=== PATIENT | male | born 1965 ===

== ENCOUNTER 2025-06-04 13:57 | Inpatient (IN) | payer MEDICARE ==
[~2025-06-04] VITALS: Ht 175.3 cm; Wt 104.1 kg
[2025-06-04 14:44] VITALS: BP 116/74
[2025-06-04 15:17] VITALS: BP 116/74
--- NOTE | 2025-06-04 16:50 | NUR ---
ADMISSION NOTE 60 YEAR-OLD MALE PRESENTS REASONABLY GROOMED. HE IS INITIALLY ABLE TO MAKE EYE CONTACT, BUT CANOT HOLD THAT EYE CONTACT DURING A COVERSATION. PT'S MOOD WAS GOOD AND HIS AFFECT WAS CONGRUENT. PT DENIES HI, VH, AND TH AT THIS TIME. HE DOES HOWEVER ENDORSE HAVING AH "ALL OF THE TIME". PT STATES THAT WHEN THE VOICES GET REALLY BAD, HE JUST WANTS TO END IT. HE STATED THAT HE HAS HAD FLEETING SI, BUT NEVER PROGRESSED TO THE PLANNING STAGE. PT APPEARS TO BE VERY LATTER DAY AND ON SEVERAL OCCASSIONS HAD TO BE REDIRECTED OUT OF TANGENTIAL CONVERSATIONS DURING THE INTAKE PROCESS. PT STATES HE IS NOT ALLERGIC TO ANYTHING. UNABLE TO COMPLETE MED RECON D/T THE PT UNSURE OF MEDICATIONS. ATTEMPTED TO CALL [facility], BUT THEY WERE CLOSED. WILL REATTEMPT TOMORROW AM. PT STATED THAT HE MOSTLY MEDICATION COMPLIANT, BUT OCCASSIONALLY HIS VOICES MAKE HIM PARANOID AND HE BECOMES NONCOMPLIANT WITH HIS MEDS. PT WAS GIVEN A SNACK AND DRINK. HE WAS ORIENTED TO THE UNIT. PT WILL BE MONITORED Q15 MINUTES FOR SAEFTY AND CARE
[2025-06-04] MEDS ORDERED: LORazepam 2 MG/ML 1ML Injection IM PRN (17:10)
[2025-06-04] MEDS ORDERED: DiphenhydrAMINE HCl 50 MG/ML 1ML Vial IM PRN (17:15)
[2025-06-04] MEDS ORDERED: Ondansetron 4 MG SoluTab MM PRN (17:15)
[2025-06-04] MEDS ORDERED: Polyethylene Glycol 3350 17 gm PO PRN (17:15)
[2025-06-04] MEDS ORDERED: Aluminum Hydroxide 320MG/5ML 473 ML PO PRN (17:20)
[2025-06-04] MEDS ORDERED: FLU VACC TS2025-26(6MOS UP)/PF 45 MCG/0.5 ML SYRINGE IM ONE (17:20)
[2025-06-04] MEDS ORDERED: Haloperidol Lactate Inj. 5 MG/ML Injection IM PRN (17:20)
[2025-06-04 18:04] LABS: BASOPHILS ABSOLUTE AUTO 0.05 K/mm3 (0.00-0.23); BASOPHILS PERCENT AUTO 1 % (0-2); EOSINOPHILS ABSOLUTE AUTO 0.29 K/mm3 (0.00-0.68); EOSINOPHILS PERCENT AUTO 4 % (0-6); Hematocrit 45.5 % (37.0-53.0); Hemoglobin 15.2 g/dL (13.5-17.5); IMMATURE GRAN ABSOLUTE AUTO 0.05 K/mm3 (0.00-0.10); IMMATURE GRAN PERCENT AUTO 1 % (0-1); LYMPHOCYTES ABSOLUTE AUTO 1.32 K/mm3 (0.84-5.20); LYMPHOCYTES PERCENT AUTO 18 % (21-46); MONOCYTES ABSOLUTE AUTO 0.52 K/mm3 (0.16-1.47); MONOCYTES PERCENT AUTO 7 % (4-13); Mean Corpuscular HGB Conc 33.4 g/dL (31.5-36.5); Mean Corpuscular Volume 84 fL (80-100); NEUTROPHILS ABSOLUTE AUTO 5.08 K/mm3 (1.96-9.15); NEUTROPHILS PERCENT AUTO 69 % (41-73); NRBC ABSOLUTE 0.00 K/mm3 (0.00-0.02); NRBC Auto 0.0 /100 WBC (0.0-0.2); Platelet Count 146 K/mm3 (150-400); RDW Coefficient Variation 13.4 % (11.7-14.2); RDW Standard Deviation 41.1 fL (35.1-46.3)
[2025-06-04 19:00] LABS: Anion Gap 9 mmol/L (3-11); Blood Urea Nitrogen 27 mg/dL (8-24); CHOL/HDL RATIO 4.0; CO2, Blood 25 mmol/L (21-32); Calcium, Blood 8.4 mg/dL (8.5-10.1); Chloride, Blood 105 mmol/L (98-108); Cholesterol 128 mg/dL (50-200); Creatinine, Blood 1.09 mg/dL (0.60-1.20); Glucose, Blood 138 mg/dL (70-99); HDL Cholesterol 32 mg/dL (>39); LDL/HDL RATIO 0.7; Low Density Lipoprotein Chol 22 mg/dL (0-110); Potassium, Blood 4.1 mmol/L (3.5-5.5); Sodium, Blood 135 mmol/L (136-145); Triglycerides 371 mg/dL (30-160); Very Low Density Lipoprot Chol 74 mg/dL (6-32)
[2025-06-04 20:07] VITALS: BP 100/79
--- NOTE | 2025-06-05 04:33 | NUR ---
SHIFT SUMMARY: CATRACHO IS A 60 YEAR OLD MALE PATIENT FROM [place] WHO LIKES TO BE CALLED "XAVIER". HE STARTED OUT THE SHIFT IN THE DAYROOM, WATCHING TELEVISION AND INTERACTING PLEASANTLY WITH HIS ROOMMATE. HIS CONVERSATIONS ARE LINEAR FOR ABOUT THREE SENTENCES, AND THEN THEY VEER OFF INTO FLIGHT OF IDEAS THAT APPROACH WORD SALAD, RELIGIOUSLY BASED IN NATURE. HE STATES THAT HE IS "HAPPY TO BE HERE, SO FAR" AND "THE PEOPLE HERE SEEM NICE, BUT YOU HAVE TO LOOK AT EVERY PERSON ONE BY ONE AND DISCERN IF THEY ARE TRULY NICE OR IF THEY HAVE ANOTHER AGENDA." HE STATES THAT HE BELIEVES "PEOPLE ARE SPYING ON ME AND TRYING TO HURT ME". HE WAS REASSURED THAT HE IS SAFE HERE ON THE UNIT. HE STATED, "WE'LL SEE ABOUT THAT". HE DENIED SUICIDAL IDEATIONS, THOUGHTS OF SELF HARMING AND A/V/T HALLUCINATIONS. FOR EXAMPLE, HE WAS IN HIS ROOM SPEAKING TO HIS SISTER, WHO IS APPARENTLY IN THE [facility], AND HE WAS ASKED IF HE THOUGHT SHE COULD HEAR HIM. HE STATED THAT HE DID NOT THINK THAT. HE PARTICIPATED IN SNACK AND WRAP UP GROUP, ALTHOUGH HE DID NOT HAVE A PAPER, BEING A NEW ADMIT. HE WAS COOPERATIVE WITH EVENING MEDICATION ADMINISTRATION, AND WAS GIVEN A TRAZODONE FOR C/O INSOMNIA, WHICH WAS NOT EFFECTIVE. HE WENT TO HIS ROOM WHEN HIS ROOMMATE WENT, AND WENT TO BED, BUT HE WAS TALKING AND GETTING UP AND DOWN. HE CAME OUT OF THE ROOM WELL. HE WAS ASKED IF HE NEEDED MORE HELP SLEEPING, AND HAD A MASS SCORE OF 5. HE WAS GIVEN VISTARIL WITH NO EFFECT FOR ANXIETY, AND CONTINUED TO SING, TALK AND WANDER AROUND THE UNIT. HE APPARENTLY (PER ROOMMATE) TAPPED ON HIS ROOMMATE'S MATTRESS, CAUSING ROOMMATE TO YELL ANGRILY. AT THAT POINT, PATIENT WAS ASKED TO COME AND SIT IN THE SENSORY ROOM WHILE STAFF FIGURED THINGS OUT. HE WAS STILL WIDE AWAKE AND BECOMING LOUD AND DEMANDING, RESTLESS AND DISORGANIZED. WITH A MASS SCORE OF 9, HE WAS GIVEN ZYPREXA. IT HELPED HIM CALM, BUT HE WAS STILL WIDE AWAKE. HE WAS MOVED TO HIS OWN SPACE IN ROOM 605D, WHICH APPEARED TO MAKE HIM HAPPY. HE CAME OUT AGAIN ASKING FOR LOTION FOR HIS FEET, AND WAS GIVEN A HYGIENE BAG. HE PUT LOTION ON HIS FEET, WHILE SINGING LOUDLY, AND THEN CAME OUT AGAIN. HE WAS LED TO HIS ROOM AND ASKED TO STAY IN THERE IF HE COULD POSSIBLY, AND TRY TO SLEEP. HE WAS AGREEABLE, BUT DIDN'T SEEM ABLE TO ACCOMPLISH IT. AT 0440, HE IS STILL POPPING UP IN BED AT EACH CHECK, WAVING TO STAFF AND ANNOUNCING HIS LATEST THOUGHTS AND CONCERNS. CONTINUING TO MONITOR FOR SAFETY WITH Q15 MINUTE CHECKS.
[2025-06-05] MEDS ORDERED: OLAN10 (08:30)
[2025-06-05] MEDS ORDERED: POTA10T PO (08:31)
[2025-06-05] MEDS ORDERED: METF500 PO (08:31)
[2025-06-05] MEDS ORDERED: CLOZAPINE200 M1 PO (08:32)
[2025-06-05] MEDS ORDERED: OLAN10A PO (08:33)
[2025-06-05] MEDS ORDERED: TRAZ100 PO (08:34)
[2025-06-05] MEDS ORDERED: PALI6TA PO (08:34)
[2025-06-05] MEDS ORDERED: ATOR20 PO (08:35)
[2025-06-05] MEDS ORDERED: FURO20 PO (08:36)
[2025-06-05] MEDS ORDERED: DOC250 PO (08:42)
[2025-06-05] MEDS ORDERED: HYDHCL25 PO (08:44)
[2025-06-05] MEDS ORDERED: METO25 PO (08:45)
[2025-06-05] MEDS ORDERED: SENN187 PO (08:46)
[2025-06-05] MEDS ORDERED: MIRALAX17 GM (08:46)
[2025-06-05] MEDS ORDERED: ATROPINE SULFATE2 M1 SL (08:48)
[2025-06-05] MEDS ORDERED: Multivitamins 1 Tab PO SCH (09:00)
[2025-06-05] MEDS ORDERED: Atropine Sulfate 1% Opth Soln 2ML BTL SL PRN (09:10)
[2025-06-05 13:20] VITALS: BP 136/87
[2025-06-05] MEDS ORDERED: MetFORMIN HCl 500 mg PO SCH (16:00)
--- NOTE | 2025-06-05 17:07 | NUR ---
SHIFT SUMMARY PT DENIES SI, HI, AND TACTILE HALLUCINATIONS. ENDORSES AUDITORY HALLUCINATIONS, BUT DENIED HAVING THEM AT START OF SHIFT, STATED IT WAS "JUST CHATTER". PT STATED HE HAD VISUAL HALLUCINATION LAST NIGHT, "I SAW A TV ON THE CEILING". PT SPEECH ALTERNATES BETWEEN TANGENTIAL AND CIRCUMSTANTIAL. PT GIVEN ZYPREXA TODAY D/T ESCALATING AND ENDORSING FEELING ANXIETY. DIFFICULT TO REDIRECT. DR AWARE, NO OTHER ACUTE EVENTS TODAY.
--- NOTE | 2025-06-05 18:45 | NUR ---
UPDATE PT BECAME AGITATED W/ MASS SCORE OF 21 AFTER DINNER. SECURITY CALLED AND IM ATIVAN AND BENEDRYL BROUGHT TO ADMINISTER PT. PT BEGAN TO ESCALATE AND OPTION WAS GIVEN TO PT TO TAKE PO, WHICH PT AGREED TO. PT THEN REFUSED TO TAKE BENEDRYL, BUT TOOK ATIVAN. DR ROBBINS NOTIFIED W/ ORDERS FOR GEODON, WHICH WAS GIVEN TO PT. PT IS NOW QUIETLY TALKING IN [place] W/ SECURITY, BUT ESCALATES WHEN THIS RN OR JEISON RN APPROACHES. DR SALGADO. BEFORE MEDICATION ADMINISTERED, PT WAS SCREAMING/YELLING ABOUT LUTHERAN, BEING "RAPED BEFORE", AND CALLING JEISON A "BITCH". ATTEMPTS AT THERAPEUTIC COMMUNICATION/DEESCALATION WAS UNSUCCESSFUL.
--- NOTE | 2025-06-06 04:28 | NUR ---
SHIFT SUMMARY: PATIENT WAS IN THE DAYROOM AT THE BEGINNING OF THE SHIFT, INTERACTING WITH STAFF AND PEERS SOMEWHAT APPROPRIATELY. HE WAS ASKED IF HE WANTED TO TALK, AND HE DID, SO RN AND PATIENT WENT OUT TO THE [facility], LEAVING THE DOOR TO THE DAYROOM OPEN. PATIENT STATED, "I TALK TO MY SISTER A LOT. SHE'S IN SENIOR LIVING, BUT SHE CAN HEAR ME". HE LIFTED HIS HEAD TOWARD THE MATT AND SPOKE TO AN UNSEEN OTHER FOR A MOMENT. HE WAS RATHER VERBOSE, BUT DID DENY SUICIDAL IDEATION, THOUGHTS OF SELF HARMING AND WHILE HE DENIED A/V/T HALLUCINATIONS, HE PRESENTED HEARING AND MOST LIKELY SEEING UNSEEN OTHER/OTHERS. HE VEERED OFF TOPIC AT TIMES, AND WAS HARD TO REDIRECT. HE BORDERED ON BEING INAPPROPRIATE AND ALSO INSULTING, SO MOTIVATIONAL INTERVIEWING COMMUNICATION USING OPEN ENDED QUESTIONS WAS TRIED TO STEER HIM BACK TO THE TOPIC, WHICH EVENTUALLY DID HAPPEN. HE DENIED ANY ISSUES OR CONCERNS AND PRESENTED ENJOYING HIMSELF. HE PARTICIPATED IN SNACK AND WRAP UP GROUP AT 2030, AND WAS SOMEWHAT COMPLIANT WITH MEDICATION ADMINISTRATION. IT WAS DIFFICULT TO DETERMINE WHETHER HE WAS PLAYING A JOKE OR ACTUALLY HAD CONCERNS THAT HIS PILLS WERE SOMETHING "POISON". HE WAS SHOWN ALL OF HIS MEDICATIONS WHILE STILL IN THE WRAPPER, AND MEDICATION EDUCATION WAS GIVEN ON EACH ONE. HIS ISSUE WAS WITH A MEDICATION THAT HE NEEDED TO TAKE 8 1 MG PILLS TO GET HIS DOSAGE. HE DID FINALLY TAKE THE MEDICATION WHEN A PEER URGED HIM TO DO SO. HE CAME BACK TO THE DAYROOM AND WAS OVERSEEING THE BUILDING OF A PUZZLE UNTIL HE DROOPED OVER AND FELL ASLEEP. HE WAS ESCORTED PEACEFULLY TO HIS ROOM, AND TUCKED INTO HIS BED. HE GOT UP SEVERAL TIMES DURING THE NIGHT. HE HAD AN EPISODE OF INCONTINENCE, SO HIS BEDDING WAS CHANGED AND HE WAS GIVEN NEW SCRUBS. HE WENT INTO HIS BATHROOM AND LOUDLY TALKED AND TAPPED AND CLICKED HIS FINGERS. IT WAS SUGGESTED THAT HE COME DOWN TO THE SENSORY ROOM, BUT HE ONLY LASTED A MINUTE IN THERE. HE DID AGREE TO TAKE A ZYPREXA AT 0338 FOR A MASS SCORE OF 9. HE PACED THE HALLWAYS FOR A TIME AND MADE SOME NOISE BUT NOT ENOUGH TO WARRANT INTERVENTION. AT THIS TIME, HE IS SITTING IN A CHAIR IN THE HALLWAY NEAR THE NURSING STATION TALKING TO A PEER. HE IS WEARING AN UNDERGARMENT INCONTINENCE PROTECTOR (DEPENDS) WILLINGLY, SHOULD HE FALL ASLEEP AND HAVE AN ACCIDENT AGAIN. CONTINUING TO MONITOR CONTINUOUSLY WHILE NEAR THE NURSING STATION FOR SAFETY.
[2025-06-06] MEDS ORDERED: Potassium Chloride 10 Meq Tablet SA PO SCH (09:00)
--- NOTE | 2025-06-06 10:21 | NUR ---
PT RESTING INN BED WITH EYES CLOSED. WAS NOT UP FOR BREAKFAST. THIS RN SPOKE WITH DR. ROBBINS WHO APPROVED HOLDING AM MEDS UNTIL PT IS AWAKE.
[2025-06-06 13:24] VITALS: BP 130/71
--- NOTE | 2025-06-06 17:49 | NUR ---
SHIFT SUMMARY: PT WAS RESTING IN BED THIS AM WITH EYES CLOSED, APPEARED TO BE SLEEPING. HE SLEPT THROUGH BREAKFAST AND AM MEDS WERE HELD WITH OK FROM PROVIDER. PT WAS WOKE UP WITHOUT DIFFICULTY FOR LUNCH. HE WAS CALM AND COOPERATIVE WITH CARE. HE DENIED SI, HI AND AVH. HE WAS COMPLIANT WITH MEDICATIONS AND ACTIVE IN THE MILIEU. HE SPENT TIME IN THE DAY ROOM AND ON THE PATIO. IN THE AFTERNOON PT WAS NOTED TO BE TALKING WHILE OUTSIDE ALONE, MOVING ARMS AROUND ANIMIATEDLY. HE WALKED BACK INTO THE DAY ROOM AND SAT QUIETLY DOING CROSSWORD PUZZLES. HE ATTENDED LUNCH AND DINNER AND WAS CALM THROUGHOUT THE DAY.
[2025-06-06 20:38] VITALS: BP 117/75
--- NOTE | 2025-06-07 04:35 | NUR ---
SHIFT SUMMARY PATIENT IN BED SLEEPING AT BEGINNING OF SHIFT AWAKENS EASILY TO SLIGHT STIMULI. VERBALIZED THAT HE IS "HANGING IN THERE" AND THAT HE IS FEELING "HOPEFUL". DENIES SI,OR HI. DENIES AVH AFTER A LONG PAUSE AND APPEARED TO BE LISTENING. PATIENT UP FOR SNACK AND TAKING HS MEDICATIONS WITH NO DIFFICULTY. RETURNING TO BED AFTER FINISHING EATING. AT 2315 PATIENT UP TO NURSES DESK REQUESTING SOMETHING TO HELP WITH SLEEP TRAZODONE GIVEN. PATIENT APPEARS TO BE SLEEPING WELL T/O NIGHT WITH OCCASIONAL SNORING. CONTINUE TO MONITOR Q15MIN
[2025-06-07 08:06] VITALS: BP 107/72
--- NOTE | 2025-06-07 17:36 | NUR ---
SHIFT SUMMARY: PT HAS BEEN ALERT, ORIENTED AND COOPERATIVE WITH CARE. HE DENIED SI AND HI. REPORTS HAVING HALLUCINTIONS "ALL THE TIME" BUT WOULD NOT ELABORATE FURTHER. HE ATTENDED MEALS AND WAS PRESENT ON THE UNIT. ACTIVE IN THE MILIEU, SPENT TIME IN THE DAY ROOM WATCHING TV. CONVERSIVE WITH PEERS AND STAFF.
[2025-06-07 20:35] VITALS: BP 127/72
--- NOTE | 2025-06-08 04:44 | NUR ---
SHIFT SUMMARY: PATIENT WAS IN AND OUT OF THE DAYROOM AT THE BEGINNING OF THE SHIFT. HE GREETED STAFF COMING IN, BUT HAD SOME INTEREST IN THE FOOTBALL GAME IN THE DAYROOM. HE WAS NOT ABLE TO SIT STILL FOR LONG. RN USED COLLABORATIVE PROBLEM SOLVING TO LET HIM KNOW THAT STAFF WANTS TO HEAR WHAT HE HAS TO SAY, BUT INSULTS WILL NOT BE TOLERATED. HE RESPONDED THAT HE UNDERSTOOD. HE WAS ABLE TO BE PLEASANT AND COOPERATIVE WITH CARES. HE HAD A HARD TIME FOCUSING ON ANY ONE THING WHILE AWAKE THIS SHIFT. HE WAS ABLE TO ANSWER FABRICATION AND LAYOUT CRAFTSMAN QUESTIONS IN A LOGICAL AND LINEAR MANNER. HE DENIED SUICIDAL IDEATION, THOUGHTS OF SELF HARMING AND A/V/T HALLUCINATIONS. HE WAS NOT NOTED TO BE RESPONDING TO UNSEEN/UNHEARD OTHERS THIS SHIFT. HE PARTICIPATED IN SNACK AND WRAP UP GROUP, AND WAS COMPLIANT WITH EVENING MEDICATIONS. HE WAS ABLE TO SEE THE MEDICATIONS BEING OPENED, AND WAS GIVEN MEDICATION EDUCATION, TO WHICH HE VERBALIZED UNDERSTANDING. HE REQUESTED AND RECEIVED TRAZODONE, WHICH WAS EFFECTIVE FOR INSOMNIA. HE WENT TO BED AFTER SNACK, AND WAS NOTED TO BE RESTING QUIETLY WITH EYES CLOSED AND RESPIRATIONS CONFIRMED FOR THE REMAINDER OF THE SHIFT. HE DID TALK IN HIS SLEEP AT LEAST X1. CONTINUING TO MONITOR FOR SAFETY WITH Q15 MINUTE CHECKS.
[2025-06-08 06:56] LABS: CLOZAPINE, S/P, QUANT 105 ng/mL; CLOZAPINE-N-OXIDE, S/P, QUANT <100 ng/mL; NORCLOZAPINE, S/P, QUANT <100 ng/mL; TOTAL CLOZAPINE AND METAB 105 ng/mL (<=1500)
[2025-06-08 07:35] LABS: BASOPHILS ABSOLUTE AUTO 0.07 K/mm3 (0.00-0.23); BASOPHILS PERCENT AUTO 1 % (0-2); EOSINOPHILS ABSOLUTE AUTO 0.20 K/mm3 (0.00-0.68); EOSINOPHILS PERCENT AUTO 3 % (0-6); Hematocrit 46.4 % (37.0-53.0); Hemoglobin 15.3 g/dL (13.5-17.5); IMMATURE GRAN ABSOLUTE AUTO 0.09 K/mm3 (0.00-0.10); IMMATURE GRAN PERCENT AUTO 1 % (0-1); LYMPHOCYTES ABSOLUTE AUTO 1.37 K/mm3 (0.84-5.20); LYMPHOCYTES PERCENT AUTO 22 % (21-46); MONOCYTES ABSOLUTE AUTO 0.58 K/mm3 (0.16-1.47); MONOCYTES PERCENT AUTO 9 % (4-13); Mean Corpuscular HGB Conc 33.0 g/dL (31.5-36.5); Mean Corpuscular Volume 83 fL (80-100); NEUTROPHILS ABSOLUTE AUTO 3.93 K/mm3 (1.96-9.15); NEUTROPHILS PERCENT AUTO 63 % (41-73); NRBC ABSOLUTE 0.00 K/mm3 (0.00-0.02); NRBC Auto 0.0 /100 WBC (0.0-0.2); Platelet Count 135 K/mm3 (150-400); RDW Coefficient Variation 13.4 % (11.7-14.2); RDW Standard Deviation 40.8 fL (35.1-46.3)
[2025-06-08 08:14] VITALS: BP 116/75
--- NOTE | 2025-06-08 10:14 | NUR ---
SHIFT ASSESSMENT: PT IS ALERT, ORIENTED AND COOPERATIVE WITH CARE. HE DENIES SI AND HI. WHEN ASKED ABOUT AVH, STATES " IT'S WEIRD TO EXPLIAN, IT'S LIKE SHANNON FLORES AND THE HOL[employer] SPIRIT". PT DOES NOT APPEAR TO BE RESPONDING TO INTERNAL STIMULI AT THIS TIME. HE DENIES ANXIETY. HIS AFFECT IS CONTSTRICTED, HAS APPROPRIATE EYE CONTACT AND IS ABLE TO VERBALIZE NEEDS APPOPRIATELY. HE WAS UP FOR BREAKFAST, SHOWERED WITH SOME ENCOURAGEMENT FROM STAFF AND SPENT TIME RESTING ON HIS BED. HE HAS BEEN COMPLIANT WITH MEDICATIONS AND STATED THAT HE SLEPT GOOD LAST NIGHT.
--- NOTE | 2025-06-08 17:20 | NUR ---
SHIFT SUMMARY: PT REMAINED ALERT, ORIENTED AND COOPERATIVE THROUGHOUT THE SHIFT. NO PRN MEDICATIONS REQUIRED. HE ATTENDED MEALS AND SHOWERED THIS AM. HE WAS ACTIVE IN THE UNIT MILIEU, SPENT TIME IN THE DAY ROOM WATCHING TV AND TALKING WITH PEERS AND STAFF.
[2025-06-08 20:41] VITALS: BP 128/77
--- NOTE | 2025-06-09 04:54 | NUR ---
SHIFT SUMMARY: PATIENT WAS IN THE MILIEU, WANDERING AROUND AND TALKING TO STAFF AND PEERS. HE PRESENTED JOVIAL AND FRIENDLY. HE WAS IN AND OUT OF THE DAY ROOM, WATCHING TELEVISION AT TIMES. HE WAS ABLE TO ANSWER RN QUESTIONS IN A LOGICAL AND LINEAR MANNER, NOT VEERING OFF INTO TANGENTIAL PHRASES. HE DENIED SUICIDAL IDEATION, THOUGHTS OF SELF HARMING AND A/V/T HALLUCINATIONS. HE WAS NOT OBSERVED RESPONDING TO UNSEEN/UNHEARD OTHERS THIS SHIFT, UNLIKE PRIOR SHIFTS. HE PARTICIPATED IN SNACK AND WRAP UP GROUP, ALTHOUGH HE DID NOT WRITE ON HIS WRAP UP PAPER. HE WAS COMPLIANT WITH MEDICATION ADMINISTRATION, AND RECEIVED MEDICATION EDUCATION, TO WHICH HE WAS ABLE TO VERBALIZE UNDERSTANDING. HE REQUESTED AND WAS GIVEN A TRAZODONE FOR INSOMNIA, WHICH WAS EFFECTIVE. HE WENT TO BED BEFORE 2200, AND WAS NOTED TO BE RESTING QUIETLY WITH EYES CLOSED AND RESPIRATIONS CONFIRMED FOR THE REMAINDER OF THE SHIFT. CONTINUING TO MONITOR FOR SAFETY WITH Q15 MINUTE CHECKS.
[2025-06-09 07:49] LABS: Hematocrit 44.7 % (37.0-53.0); Hemoglobin 15.0 g/dL (13.5-17.5); Mean Corpuscular HGB Conc 33.6 g/dL (31.5-36.5); Mean Corpuscular Volume 83 fL (80-100); NRBC ABSOLUTE 0.00 K/mm3 (0.00-0.02); NRBC Auto 0.0 /100 WBC (0.0-0.2); RDW Coefficient Variation 13.5 % (11.7-14.2); RDW Standard Deviation 40.6 fL (35.1-46.3)
[2025-06-09 07:50] LABS: Platelet Count 133 K/mm3 (150-400)
[2025-06-09 07:51] LABS: BASOPHILS ABSOLUTE AUTO 0.05 K/mm3 (0.00-0.23); BASOPHILS PERCENT AUTO 1 % (0-2); EOSINOPHILS ABSOLUTE AUTO 0.24 K/mm3 (0.00-0.68); EOSINOPHILS PERCENT AUTO 4 % (0-6); IMMATURE GRAN ABSOLUTE AUTO 0.09 K/mm3 (0.00-0.10); IMMATURE GRAN PERCENT AUTO 1 % (0-1); LYMPHOCYTES ABSOLUTE AUTO 1.38 K/mm3 (0.84-5.20); LYMPHOCYTES PERCENT AUTO 20 % (21-46); MONOCYTES ABSOLUTE AUTO 0.63 K/mm3 (0.16-1.47); MONOCYTES PERCENT AUTO 9 % (4-13); NEUTROPHILS ABSOLUTE AUTO 4.37 K/mm3 (1.96-9.15); NEUTROPHILS PERCENT AUTO 65 % (41-73)
[2025-06-09 08:46] VITALS: BP 114/84
[2025-06-09 08:47] LABS: BAND PERCENT MAN 1 % (0-8); BASOPHILS ABSOLUTE MAN 0.06 K/mm3 (0.00-0.23); BASOPHILS PERCENT MAN 1 % (0-2); EOSINOPHILS ABSOLUTE MAN 0.20 K/mm3 (0.00-0.68); EOSINOPHILS PERCENT MAN 3 % (0-6); LYMPHOCYTES ABSOLUTE MAN 1.24 K/mm3 (0.84-5.20); LYMPHOCYTES PERCENT MAN 18 % (21-46); METAMYELOCYTE ABSOLUTE MAN 0.06 K/mm3 (0.00-0.00); METAMYELOCYTE PERCENT MAN 1 % (0-0); MONOCYTES ABSOLUTE MAN 0.55 K/mm3 (0.16-1.47); MONOCYTES PERCENT MAN 8 % (4-13); NEUTROPHILS ABSOLUTE MAN 4.75 K/mm3 (1.96-9.15); SEG NEUTROPHILS PERCENT MAN 68 % (41-73)
--- NOTE | 2025-06-09 18:15 | NUR ---
SHIFT SUMMARY PT A/O X3; COOPERATIVE WITH CARE. HE DENIES SI, HI, AVTH. HIS AFFECT IS CONGRUENT TO STATED MOOD AND HE ATTENDED GROUPS/MEALS. PT STATES THAT HE IS READY TO DISCHARGE AND WILL POTENTIALL DISCHARGE ON MONDAY. PT MONITORED Q15 PER UNIT PROTOCOL FOR SAFETY AND WELLNESS.
[2025-06-09 20:15] VITALS: BP 117/75
--- NOTE | 2025-06-10 04:14 | NUR ---
SHIFT SUMMARY 60 YEAR OLD MALE PRESENTED WELL GROOMED. PT WAS ABLE TO MAKE AND KEEP EYE CONTACT DURING CONVERSATIONS. HE SPOKE IN A CLEAR VOICE AND AN APPROPRIATE VOLUME. PT DENIED SI & HI. HE DID ENDORCE AH, BUT SAID THEY WERE BETTER THAN WHEN HE ADMITTED.PT INTERACTED WELL WITH STAFF AND PEERS. PT WATCHED TV AND AND ATTENDED SNACK TIME. HE WAS CALM AND COOPERATIVE WITH CARE AND COMPLIANT WITH THE EVENING MEDICATION PASS. PT DID NOT REQUEST ANY PRN MEDICATIONS. PT HAS SLEPT MOST OF THE NIGHT.
[2025-06-10 09:18] VITALS: BP 115/74
--- NOTE | 2025-06-10 13:23 | NUR ---
IMPORTANT DISCHARGE INFORMATION PATIENT TO BE DISCHARGED 06/11/25 AT 10AM. RIDE LINE COMING TO PICK PATIENT UP. THEIR NUMBER IS [phone] PLEASE HAVE PATIENT READY [facility] IS EXPECTING THE PATIENT BEFORE NOON. HIS ASSISTANT FINANCIAL ACCOUNTANT CLAUDIA BALDERRAMA WILL MEET HIM AT [facility], HIS NUMBER IS [phone]. ALL PARTIES VERBALIZE AN UNDERSTANDING. FOLLOW UP WITH PCP DR. CARR 06/11/25 AT 2PM. HE WILL BE FOLLOWED BY [facility] AND THE [facility] TEAM. HE WILL GET HIS NEW APARTMENT ALSO ON MONDAY WITH ASSISTANCE OF [facility]. PHARMACY: [facility] FAX NUMBER [phone]
--- NOTE | 2025-06-10 17:06 | NUR ---
SHIFT SUMMARY PT A/O X4; PLEASANT AND COOPERATIVE WITH CARE. HE DENIES SI AND HI. HE REPORTS THAT HE HAS CONSTANT AUDIO AND VISUAL HALLUCINATIONS. HE SAYS THAT THEY "COSME" HIM AND THAT "IT'S HARD TO DESCRIBE" BUT THEY AREN'T BOTHERSOME. HIS AFFECT IS CONGRUENT TO STATED MOOD AND HE IS EXCITED TO BE LEAVING TOMORROW. HE ATTENDED ALL GROUPS AND MEALS THIS SHIFT.
[2025-06-10 20:52] VITALS: BP 130/77
--- NOTE | 2025-06-11 04:40 | NUR ---
SHIFT SUMMARY PATIENT IN BED RESTING AT BEGINNING OF SHIFT, UP FOR SNACK THEN BACK TO BED. VERBALIZED THAT HE WAS FEELING "GOOD" DENIES SI OR HI. VERBALIZED THAT HE CONTINUES TO HAVE AVH "ALL THE TIME" "I JUST WORK WITH THEM". COOPERATIVE WITH PO MEDICATIONS. APPEARS TO BE SLEEPING WELL T/O NIGHT RESP EVEN AND UNLABORED WITH OCCASIONAL SNORING. CONTINUE TO MONITOR Q15MIN
[2025-06-11 08:46] VITALS: BP 125/89
--- NOTE | 2025-06-11 10:00 | NUR ---
PT ALERT, ORIENTED AND COOPERATIVE WITH CARE. HE DENIES SI AND HI. REPORTS HALLUCINATIONS THAT ARE "ALWAYS THERE". PT APPEARS STATED AGE, HAS WELL GROOMED APPEARANCE AND IS COMPLIANT WITH MEDICATIONS. HE WAS UP FOR BREAKFAST AND HAS BEEN PRESENT ON THE UNIT.
--- NOTE | 2025-06-11 10:10 | NUR ---
PT HAS BEEN DISCHARGED HOME. HE VERBALIZED UNDERSTANDING OF DISCHARGE INSTRUCITONS AND DENIED QUESTIONS. BELONGINGS RETURNED BY JHOAN RUSS. PT AMBULATED OUT OF DEPT TO AWAITING TRANPSORT WITHOUT DIFFICULTY, DISCHARGE INSTRUCTIONS AND BELONGINGS IN HAND.
== END 2025-06-11 10:10 | disposition home or self-care (01) | DRG 885 ==
LOC: BHU 13:57
PROVIDERS: ADMIT Psychiatry & Neurology Psychiatry
DX: F25.9 Schizoaffective disorder, unspecified (principal); Z79.1 Long term (current) use of non-steroidal anti-inflammatories (NSAID); Z79.84 Long term (current) use of oral hypoglycemic drugs; Z79.899 Other long term (current) drug therapy; Z88.8 Allergy status to other drugs, medicaments and biological substances
CPT/HCPCS: 36415; 80048; 80061; 83036; 85007; 85025; 85027; A9270; J1200; J2060